=== PATIENT | male | born 1990 | race Caucasian/White ===

== ENCOUNTER 2020-09-05 15:42 | Emergency (ER) | payer OTHER ==
[2020-09-05 15:54] VITALS: BP 141/86; PULSE 97; O2SAT 97
--- NOTE | 2020-09-05 15:55 | ERPHSYRPT ---
- History of Present Illness Time Seen by Provider: 09/05/20 15:49 Source: patient Exam Limitations: no limitations Physician History: Patient is a 30-year-old male who presents with a complaint of a painful rash diagnosed as shingles in his right axilla. He reports that he had pain without rash for several days prior to the onset of a blistery rash in clusters primarily in the axilla and underneath the right arm. There is some radiation down onto the chest as well. He was seen in [facility] he was given a V medicine which I assume was Valtrex he was also given hydrocodone for his pain. He noticed that it seemed to be getting better and then the original cluster of blisters turned into more like ulcers and his pain returned. Timing/Duration: week(s) (2-3) Quality: burning, painful Severity: severe Location: torso, extremities Possible Causes: other (zoster) Allergies/Adverse Reactions: Penicillins Allergy (Verified 07/06/14 01:28) Home Medications: Aripiprazole Lauroxil [Aristada] 882 mg IM WEEKLY 09/05/20 [History] Buspirone HCl [Buspar] 15 mg PO DAILY 09/05/20 [History] Duloxetine HCl 60 mg PO DAILY 09/05/20 [History] clonazePAM [Clonazepam] 1 mg PO DAILY 09/05/20 [History] Hx Tetanus, Diphtheria Vaccination/Date Given: (<1 year) Hx Influenza Vaccination/Date Given: No Hx Pneumococcal Vaccination/Date Given: No - Review of Systems Constitutional: No Fever, No Chills Eyes: No Symptoms Ears, Nose, & Throat: No Symptoms Respiratory: No Cough, No Dyspnea Cardiac: No Chest Pain, No Edema, No Syncope Abdominal/Gastrointestinal: No Abdominal Pain, No Nausea, No Vomiting, No Diarrhea Genitourinary Symptoms: No Dysuria Musculoskeletal: No Back Pain, No Neck Pain Skin: Decubiti, Pruritis, Rash, Skin Lesions Neurological: No Dizziness, No Focal Weakness, No Sensory Changes Psychological: No Symptoms Endocrine: No Symptoms All Other Systems: Reviewed and Negative - Past Medical History ENT History: Other (chronic left ear condition under care of Dr. Hanna) Respiratory History: No Pertinent History Endocrine Medical History: No Pertinent History Musculoskeletal History: Fractures GI Medical History: No Pertinent History History: No Pertinent History Psycho-Social History: No Pertinent History, Other Male Reproductive Disorders: No Pertinent History Other Medical History: paranoid schizophrenic, chronic left ear infection - Past Surgical History Past Surgical History: Yes Musculoskeletal: Orthopedic Surgery - Social History Smoking Status: Current every day smoker Exposure to second hand smoke: Yes Drug Use: none Patient Lives Alone: No - Physical Exam General Appearance: mild distress, alert Eye Exam: PERRL/EOMI, eyes nml inspection Ears, Nose, Throat Exam: normal ENT inspection, pharynx normal, moist mucous membranes Neck Exam: normal inspection, non-tender, supple, full range of motion Respiratory Exam: normal breath sounds, lungs clear, No respiratory distress Cardiovascular Exam: regular rate/rhythm, normal heart sounds Gastrointestinal/Abdomen Exam: soft, mass, No tenderness Back Exam: normal inspection, normal range of motion, No CVA tenderness, No vertebral tenderness Extremity Exam: normal inspection, normal range of motion Neurologic Exam: alert, oriented x 3, cooperative, normal mood/affect, sensation nml, No motor deficits Skin Exam: normal color, warm, dry, rash (R axilla some of the lesions are secondarily infected) SpO2 Interpretation: normal O2 Delivery: Room Air - Course Nursing assessment & vital signs reviewed: Yes - Progress Progress: unchanged - Departure Departure Disposition: Home Clinical Impression: Herpes zoster Condition: Stable Critical Care Time: No Referrals: ANANDA HOOD [Primary Care Provider] - Instructions: Shingles (DC) Prescriptions: Prednisone 10 mg [Deltasone 10 mg] 20 mg PO BID #10 tablet Gabapentin 300 mg PO Q8H 7 Days #21 capsule Valacyclovir HCl [Valtrex] 1,000 mg PO TID 7 Days #21 tablet
== END 2020-09-05 16:22 | disposition home or self-care (01) ==
LOC: ED 15:42
DX: B02.9 Zoster without complications (principal)
CPT/HCPCS: 99283

== ENCOUNTER 2021-01-09 16:02 | Emergency (ER) | payer OTHER ==
[2021-01-09] MEDS ORDERED: XYLOCAINE 1% HCL 20 ML MDV IJ ONE (16:03)
[2021-01-09 16:17] VITALS: BP 135/88; PULSE 103; O2SAT 98
[2021-01-09] MEDS ORDERED: Rocephin 1000 MG INJ IM ONE (16:45)
[2021-01-09] MEDS ORDERED: Zithromax 250 MG TABLET PO ONE (16:46)
[2021-01-09] MEDS ORDERED: Rocephin 1000 MG INJ ONE (16:49)
[2021-01-09] MEDS ORDERED: Zithromax 250 MG TABLET ONE (16:49)
[2021-01-09] MEDS ORDERED: NORCO 5/325 MG ONE (16:49)
[2021-01-09] MEDS ORDERED: NORCO 5/325 MG PO ONE (16:49)
[2021-01-09 16:50] LABS: Appearance CLOUDY (CLEAR); Bacteria FEW /HPF (NEGATIVE); Bilirubin SMALL (NEGATIVE); Blood NEGATIVE Ery/ul (0-5); Epithelial Cells RARE /HPF (FEW); Glucose NEGATIVE (NEGATIVE); Ketones NEGATIVE (NEGATIVE); Leukocyte Esterase MODERATE (NEGATIVE); Mucus MANY /HPF (NEGATIVE); Nitrite NEGATIVE (NEGATIVE); Protein,Urine Dip 100 (Negative); Specific Gravity 1.036 (1.005-1.025); Urobilinogen 2 mg/dL (0-1); WBC >100 /HPF (0-5)
--- NOTE | 2021-01-09 16:56 | ERPHSYRPT ---
- History of Present Illness Time Seen by Provider: 01/09/21 16:15 Source: patient Exam Limitations: no limitations Patient Subjective Stated Complaint: pt here penil discharge today and swelling with pain to right testicle Triage Nursing Assessment: pt aleert, resp easy, face mask in place,skin w/d/p, swelling to right testicle Physician History: This is a 30-year-old white male who is sexually active and presents with a tender slightly swollen right testicle with yellowish-whitish penile discharge. Patient denies chest pain. He denies abdominal pain. He has not had fevers or chills. Timing/Duration: day(s) (2) Activites at Onset: sexual activity Quality: burning Onset Location: urethral, right testicle Pain Radiation: none Severity of Pain-Max: mild (To moderate) Severity of Pain-Current: mild (To moderate) Modifying Factors: Improves With: nothing Associated Symptoms: denies symptoms Prior abdominal problems: none Sexual intercourse history: unprotected intercourse Allergies/Adverse Reactions: Penicillins Allergy (Verified 01/09/21 16:13) Home Medications: Aripiprazole Lauroxil [Aristada] 882 mg IM WEEKLY 09/05/20 [History] Buspirone HCl [Buspar] 15 mg PO DAILY 09/05/20 [History] Duloxetine HCl 60 mg PO DAILY 09/05/20 [History] clonazePAM [Clonazepam] 1 mg PO DAILY 09/05/20 [History] Hx Tetanus, Diphtheria Vaccination/Date Given: (<1 year) Hx Influenza Vaccination/Date Given: No Hx Pneumococcal Vaccination/Date Given: No Immunizations Up to Date: Yes Travel Risk - International Travel Have you traveled outside of the country in past 3 weeks: No - Coronavirus Screening Are you exhibiting any of the following symptoms?: No - Vaccine Status Have you recieved a Covid-19 vaccination: No - Past Medical History Pertinent Past Medical History: Yes ENT History: Other (chronic left ear condition under care of Dr. Hanna) Respiratory History: No Pertinent History Endocrine Medical History: No Pertinent History Musculoskeletal History: Fractures GI Medical History: No Pertinent History History: No Pertinent History Psycho-Social History: Other Male Reproductive Disorders: No Pertinent History Other Medical History: schizo - Past Surgical History Past Surgical History: Yes Musculoskeletal: Orthopedic Surgery Other Surgical History: cyst behind right ear, leg surg - Social History Smoking Status: Current every day smoker Exposure to second hand smoke: Yes Drug Use: marijuana Patient Lives Alone: No - Review of Systems Constitutional: No Symptoms Eyes: No Symptoms Ears, Nose, & Throat: No Symptoms Respiratory: No Symptoms Cardiac: No Symptoms Abdominal/Gastrointestinal: No Symptoms Genitourinary Symptoms: Testicle Pain (Right), Penile Discharge (Yellowish/whitish) Musculoskeletal: No Symptoms Skin: No Symptoms Neurological: No Symptoms Psychological: No Symptoms Endocrine: No Symptoms Hematologic/Lymphatic: No Symptoms Immunological/Allergic: No Symptoms All Other Systems: Reviewed and Negative - Nursing Vital Signs Nursing Vital Signs: Initial Vital Signs Temperature 97.8 F 01/09/21 16:15 Pulse Rate 103 H 01/09/21 16:15 Respiratory Rate 18 01/09/21 16:15 Blood Pressure 135/88 01/09/21 16:15 O2 Sat by Pulse Oximetry 98 01/09/21 16:15 Pain Scale Pain Intensity 6 - Physical Exam General Appearance: no apparent distress, alert, anxiety Eye Exam: PERRL/EOMI, eyes nml inspection Ears, Nose, Throat Exam: normal ENT inspection, moist mucous membranes Neck Exam: normal inspection, non-tender, supple, full range of motion Respiratory Exam: normal breath sounds, lungs clear, airway intact, No chest tenderness, No respiratory distress Cardiovascular Exam: regular rate/rhythm, normal heart sounds, normal peripheral pulses Gastrointestinal/Abdomen Exam: soft, normal bowel sounds, No tenderness Rectal Exam: not done Back Exam: normal inspection, normal range of motion, No CVA tenderness, No vertebral tenderness Extremity Exam: normal inspection, normal range of motion, pelvis stable Neurologic Exam: alert, oriented x 3, cooperative, airset caster II-XII nml as tested, normal mood/affect, nml cerebellar function, nml station & gait, sensation nml Skin Exam: normal color, warm, dry Lymphatic Exam: No adenopathy SpO2 Interpretation: normal SpO2: 98 - Course Nursing assessment & vital signs reviewed: Yes Ordered Tests: Active Orders 24 hr Category Date Time Status UA W/RFX UR CULTURE Stat Lab 01/09/21 16:42 Received Medication Summary Generic Name Dose Route Start Last Admin Trade Name Freq PRN Reason Stop Dose Admin Hydrocodone Bitart/Acetaminophen 1 tab 01/09/21 16:49 [place] 5/325 Mg PO 01/09/21 16:50 STAT ONE Discontinued Medications Generic Name Dose Route Start Last Admin Trade Name Jarret PRN Reason Stop Dose Admin Azithromycin 1,000 mg 01/09/21 16:46 Zithromax 250 Mg Tablet PO 01/09/21 16:47 STAT ONE Ceftriaxone Sodium 1,000 mg 01/09/21 16:45 Rocephin 1000 Mg Inj IM 01/09/21 16:46 STAT ONE - Progress Progress: re-examined Progress Note: 01/09/21 16:54 Medical decision making: This patient is convinced that he has either chlamydia, gonorrhea or both. He is sexually active. We are unable to do the stat testing as we are out of the stat testing kits. I informed the patient this this would be a send out and that we might not have the results back until Monday or Monday of next week. I did offer him an injection of Rocephin today and 1 g of azithromycin orally. I also offered him as an alternative, cefixime and azithromycin orally prescription that he can take with him (as well as enough for his partner) and fill if his test result is positive for gonorrhea/chlamydia or both. He has opted for the injection of Rocephin and 1 g of azithromycin today. I will send a prescription home with him and if his test comes back positive he will have a prescription to fill and provide to his partner. Counseled pt/family regarding: diagnosis, need for follow-up - Departure Departure Disposition: Home Clinical Impression: Penile discharge Condition: Stable Critical Care Time: No Referrals: ANANDA HOOD [COURTESY STAFF] - Additional Instructions: Drink plenty of liquids. Use Tylenol and ibuprofen for pain control. Avoid sexual intercourse for 1 week. Fill the prescription and provide to your partner if your test results are positive for chlamydia, gonorrhea or both. Prescriptions: Azithromycin 1,000 mg PO DAILY #4 tablet Cefixime [Suprax] 800 mg PO DAILY #2 capsule
[2021-01-12 20:55] LABS: Neisseria gonorrhoeae, NAA Positive (Negative)
== END 2021-01-09 17:17 | disposition home or self-care (01) ==
LOC: ED 16:02
DX: R36.9 Urethral discharge, unspecified (principal); Z79.899 Other long term (current) drug therapy
CPT/HCPCS: 81001; 87086; 87491; 87591; 96372; 99284; J0696; A9270-GY